=== PATIENT | male | born 1960 | race Caucasian/White ===

== ENCOUNTER → 2024-03-06 | Outpatient (CLI) | payer MEDICAID, SELFPAY ==
--- NOTE | 2024-03-06 07:25 | RAD_ITS ---
STUDY: X-RAY - SKULL REASON FOR EXAM: Male, 63 years old. MRI CLEARANCE -- JUST NEED 2 VIEWS TECHNIQUE: 2 view(s) of the skull were obtained. COMPARISON: None. FINDINGS: There is no demonstrated soft tissue swelling. Normal osseous calvarium. Normal visualized facial bones. Normal visualized paranasal sinuses. RAD/Skull less than 4 Views IMPRESSION: Normal x-ray examination of the skull. Electronically Signed: Dannie Rooney MD at 8:45 EST ,
--- NOTE | 2024-03-06 08:30 | MRI_ITS ---
STUDY: MRI LOWER EXTREMITY RIGHT TIBIA/FIBULA WITH AND WITHOUT CONTRAST REASON FOR EXAM: Male, 63 years old. PAIN, F/U TO ABNORMAL OUTSIDE CT TECHNIQUE: Standardized fat and water weighted pulse sequences were obtained in all 3 orthogonal planes, post contrast administration. IV 19 CC Clariscan was administered for the contrast portion of the examination. COMPARISON: CT right tibia/fibula dated 01/24/2024. FINDINGS: There is an old healed fracture deformity of the proximal tibial shaft. There is also a healing fracture of the proximal fibular shaft, with one shaft width lateral displacement, adjacent marrow edema, and periosteal edema (axial STIR series 12 images 19-21). Normal anterior, lateral, and posterior calf compartments, with normal muscles, crural fascia and intermuscular septa. There is mild subcutaneous soft tissue edema along the anterior santiago. There is no solid, cystic or lipomatous mass lesion of the subcutis adipose space. There is no abnormal contrast enhancement. MRI/Lower Ext No Joint W/WO Cont IMPRESSION: Old healed fracture deformity of the proximal tibial shaft. Healing fracture of the proximal fibular shaft, with one shaft width lateral displacement, adjacent marrow edema, and periosteal edema. Mild subcutaneous soft tissue edema along the anterior santiago. Electronically Signed: Eriberto Elkins MD at 14:30 EST ,
== END | disposition home or self-care (01) ==
PROVIDERS: PCP Internal Medicine Infectious Disease; Referring Provider Physician Assistant; Visit Provider Physician Assistant
DX: S82.831A Other fracture of upper and lower end of right fibula, initial encounter for closed fracture (principal); S82.101A Unspecified fracture of upper end of right tibia, initial encounter for closed fracture; M79.661 Pain in right lower leg
CPT/HCPCS: 70250; 73720; A9575